=== PATIENT | female | born 1955 | race Caucasian/White ===

== ENCOUNTER 2016-10-31 09:15 | Day surgery (SDC) | payer OTHER ==
[~2016-10-31] VITALS: Ht 152.4 cm; Wt 57.9 kg
[2016-10-31 10:07] VITALS: Ht 152.4 cm; Wt 57.9 kg
[2016-10-31] MEDS ORDERED: [UNRECOGNIZED DRUG - OTHER] (10:10)
[2016-10-31] MEDS ORDERED: PROPOFOL 20 ML ONE (10:43)
[2016-10-31] MEDS ORDERED: MIDAZOLAM 1 MG/ML 2 ML INJ ONE (10:43)
[2016-10-31] MEDS ORDERED: FENTAnyl 50 MCG/ML VIAL ONE (10:43)
[2016-10-31 10:46] VITALS: BP 137/88; PULSE 61; RESP 22
--- NOTE | 2016-10-31 11:09 | OPPN ---
Date/Time of Note Date/Time of Note DATE: 10/31/16 TIME: 11:08 Operative Report Preoperative Diagnosis Screening for colon cancer Postoperative Diagnosis Same Operation/Procedure Performed Colonoscopy Normal although it into the cecum Somewhat poor prep patient had solid stool a different angulation precluding the visibility by 10-15% Provider: NORMA CHEN MD Anesthesia Type: MAC Estimated blood loss: none Transfusion Required: no Specimen: none Grafts/Implants: none Complications: no NORMA CHEN MD Oct 31, 2016 11:09
--- NOTE | 2016-10-31 11:52 | GILP ---
DATE OF PROCEDURE: 10/31/2016 INDICATIONS FOR PROCEDURE: A 60-year-old female with breast cancer undergoing this procedure for colon cancer screening. The risks of the procedure, related complications, anesthetic risk, alternatives discussed, informed consent was obtained. DESCRIPTION OF PROCEDURE: The patient was brought to the GI lab, sedated by the anesthesiologist. After optimal sedation, digital examination done, which was normal. Scope was passed with much ease into the rectum and advanced to sigmoid, descending, transverse colon all the way into the cecum. Appendiceal orifice, IC valve identified. Cecum was filled with stool precluding the visibility by 20 percent to 30 percent. The rest of the colon was thoroughly inspected, which was normal. Patient had a collection of stool precluding visibility by 10 percent to 15 percent at different angulation. Otherwise grossly, it was normal. No polyp, no tumor or diverticula identified. Patient has small hemorrhoids. IMPRESSION: 1. Normal finding all the way into the cecum. 2. Preparation was inadequate to 4 different angulations. 3. Hemorrhoids. PLAN: Stay on high-fiber diet. We should repeat the colonoscopy in the next 5 years. Dictated By: Nazario Healy MD /[email or web address] /Document#: [id number] ; Primary
[2016-10-31 11:57] VITALS: BP 121/84; PULSE 59; RESP 14
== END 2016-10-31 15:20 | disposition home or self-care (01) ==
LOC: GIL 09:15
PROVIDERS: ATTEND Internal Medicine Gastroenterology
DX: Z12.11 Encounter for screening for malignant neoplasm of colon (principal); K64.8 Other hemorrhoids; Z85.3 Personal history of malignant neoplasm of breast
CPT/HCPCS: 45378; J2250; J3010; Z7610